=== PATIENT | female | born 1985 | race Caucasian/White ===

== ENCOUNTER 2016-12-06 11:32 | Emergency (ER) | payer OTHER | END 2016-12-06 11:44 | disposition left against medical advice (07) | LOC: CED 11:32 | DX: Z53.21 Procedure and treatment not carried out due to patient leaving prior to being seen by health care provider (principal) ==

== ENCOUNTER → 2016-12-06 | Outpatient (CLI) | payer OTHER | LOC: BMCIMAGING 12:58 | PROVIDERS: ATTEND Family Medicine | DX: M79.662 Pain in left lower leg (principal) ==